=== PATIENT | female | born 1945 | race Caucasian/White ===

== ENCOUNTER → 2018-06-29 | Outpatient (CLI) | payer MEDICARE, BC ==
[~2018-06-29] MED LIST: REGADENOSON 0.4 MG/5 ML DISP.SYRIN. IV ONE
--- NOTE | 2018-06-29 10:00 | PCVCIMAG ---
APPROVED REPORT Study performed: 06/29/2018 08:48:58 EXAM: Comprehensive 2D, Doppler, and color-flow Echocardiogram Patient Location: Echo lab Status: routine BSA: 1.81 HR: 71 bpmBP: 142/78 mmHg Rhythm: NSR Other Information Study Quality: Adequate Risk Factors: Cardiac Risk Factors: Hyperlipidemia Indications Diabetes Chest Pain elevated coronary calcium score 2D Dimensions IVSd: 9.29 (7-11mm) LVDd: 41.29 mm PWd: 9.16 (7-11mm)Ascending Ao: 35.13 (22-36mm) LVDs: 30.42 (25-40mm) Left Atrium: 36.07 (27-40mm) Aortic Root: 29.49 mm LV Single Plane 4CH: 55.73 % LV Single Plane 2CH: 56.85 % Biplane EF: 56.6 % Volumes Left Atrial Volume (Systole) Single Plane 4CH: 57.80 mLSingle Plane 2CH: 49.16 mL LA ESV Index: 30.00 mL/m2 Aortic Valve AoV Peak Vikas.: 1.49 m/s AO Peak Gr.: 9.59 mmHgLVOT Max P.17 mmHg LVOT Max V: 1.02 m/s AI Vmax: 4.48 m/s AI Hartley: 3.50 m/s2 AI PHT: 371.89 ms Mitral Valve E/A Ratio: 0.8 MV Decel. Time: 334.52 ms MV E Max Vikas.: 0.73 m/s MV A Vikas.: 0.97 m/s IVRT: 100.35 ms Pulmonary Valve PV Peak Vikas.: 1.00 m/sPV Peak Gr.: 4.03 mmHg Pulmonary Vein P Vein S: 0.49 m/sP Vein A: 0.28 m/s P Vein D: 0.58 m/sP Vein A Dur.: 114.2 msec P Vein S/D Ratio: 0.84 Tricuspid Valve TR Peak Vikas.: 2.55 m/s TR Peak Gr.: 25.95 mmHg TV Vmax: 0.48 m/s Left Ventricle The left ventricle is normal size. There is normal LV segmental wall motion. There is normal left ventricular wall thickness. Left ventricular systolic function is normal. The left ventricular ejection fraction is within the normal range. LVEF is 55-60%. Grade I - abnormal relaxation pattern. Right Ventricle The right ventricle is normal size. The right ventricular systolic function is normal. Atria The left atrium size is normal. The right atrium size is normal. Aortic Valve The aortic valve is normal in structure. Mild to moderate aortic regurgitation. There is no aortic valvular stenosis. Mitral Valve The mitral valve is normal in structure. Mild mitral regurgitation. No evidence of mitral valve stenosis. Tricuspid Valve The tricuspid valve is normal in structure. Mild tricuspid regurgitation with PAP of 33 mmHg. Pulmonic Valve The pulmonary valve is normal in structure. There is no pulmonic valvular regurgitation. Great Vessels The aortic root is normal in size. IVC is normal in size and collapses >50% with inspiration. Pericardium There is no pericardial effusion. There is no pleural effusion. <Conclusion> The left ventricle is normal size. LVEF is 55-60%. The aortic valve is normal in structure. Mild to moderate aortic regurgitation. The mitral valve is normal in structure. Mild mitral regurgitation. The tricuspid valve is normal in structure. Mild tricuspid regurgitation with PAP of 33 mmHg. The pulmonary valve is normal in structure. There is no pericardial effusion.
--- NOTE | 2018-07-03 13:18 | PCVCIMAG ---
APPROVED REPORT Imaging Protocol: Rest Tc-99m/Stress Tc-99m 1 day Study performed: 06/29/2018 10:02:12 Indication: CAD, Chest pain Patient Location: Out-Patient Stress Nurse: Lillie Conte RN, Demi Pearson RN MD Tech:Cynthia Alexandersommer [facility] [place] Ht: 5 ft 3 in Wt: 172 lbs BSA: 1.81 m2 HR: 65 bpm BP: 144/67 mmHg BMI: 30.46 Rhythm: Sinus Rhythm Medical History Medical History: Hyperlipidemia, Diabetes, High Ca Score Medications: Crestor, Omeprazole, Albuterol, Metformin Allergies: Many - none relevant to this test Cardiac Risk Factors: Age Pretest Chest Pain Characteristics: No chest pain Exercise History: Sedentary Resting Data Rest SPECT myocardial perfusion imaging was performed in supine position 45 minutes following the intravenous injection of 11.4 mCi of Tc-99m Sestamibi. Time of rest injection: 0950 Date: 06/29/2018 Administration Route: IV Administration Site: Right Wrist Pharmacologic Stress Pharmacologic stress test was performed by injecting Regadenoson 0.4 mg IV push over 10-15 seconds immediately followed by the intravenous injection of 31.9 mCi of Tc-99m Sestamibi. Time of stress injection: 1100 Date: 06/29/2018 Administration Route: IV Administration Site: Right Wrist Gated Stress SPECT was performed 45 minutes after stress injection. The images were gated to evaluate regional wall motion and calculate left ventricular ejection fraction. Stress Test Details Stress Test: Pharmacologic stress testing performed using 0.4 mg of regadenoson per 5 mL given IV over 10 seconds. Reason for pharmacologic stress test: knee issues. HRMax Heart Rate (APMHR): 149 bpm Resting HR: 65 bpmTarget HR (85% APMHR): 126 bpm Max HR Achieved: 117 bpm % of APMHR: 78 Recovery HR: 100 bpm BP Resting BP: 144/67 mmHg Max BP: 138/70 mmHg Recovery BP: 141/70 mmHg ECG Resting ECG: Sinus Rhythm Stress ECG: Sinus Tachycardia Arrhythmia: None Recovery ECG: Sinus Tachycardia Clinical Reason for Termination: Completed protocol Stress Symptoms: Dizziness, Headache Exercise duration: 0 min 55 sec Symptoms resolved with caffeine. Stress ECG Conclusion 1. Adequate response to intravenous Lexiscan 2. Inadequate heart rate for ECG diagnosis Study Data Post stress, the left ventricular ejection was 72%.. SSS: 5 SRS: 4 SDS: 2 TID = 1.00. Perfusion There is a small area of mildly reduced uptake in the apical segment of the anterior wall which is seen on the stress images as well as the resting images. This area thickens and moves normallythickens and moves normally and is most consistent with attenuation artifact. Wall Motion Normal left ventricular wall motion. Nuclear Conclusion ECG Findings: non-diagnostic Clinical Findings: negative for ischemia Nuclear Findings: negative for ischemia Exercise Capacity: not assessed Left Ventricular Function: normal 1. Low risk study 2. Post stress left ventricular ejection fraction of 72% with normal contractility <Conclusion> 1. Adequate response to intravenous Lexiscan 2. Inadequate heart rate for ECG diagnosis
== END | disposition home or self-care (01) ==
LOC: PCVCIMAG 09:02
PROVIDERS: ATTEND Internal Medicine
DX: I08.3 Combined rheumatic disorders of mitral, aortic and tricuspid valves (principal); R07.9 Chest pain, unspecified; R93.1 Abnormal findings on diagnostic imaging of heart and coronary circulation; E13.8 Other specified diabetes mellitus with unspecified complications
CPT/HCPCS: 78452; 93017; 93306; A9500; J2785